=== PATIENT | male | born 1945 | race Caucasian/White ===

== ENCOUNTER → 2016-07-29 | Outpatient (CLI) | payer OTHER, BC ==
[~2016-07-29] VITALS: Ht 177.8 cm; Wt 86.2 kg
[~2016-07-29] MED LIST: ASPIR 8181 MG PO; FLOMAX0.4 MG PO; GLUCOPHAGE XR750 MG PO; LOSARTAN POTAS100 MG PO; PANTOPRAZOLE SO40 M1 PO; ROSUVASTATIN CA20 MG PO
--- NOTE | ~2016-07-29 | P ---
[facility] [place] [address] PROCEDURE REPORT Name: LIANAJAYSHREE ENRRIQUE Room #: REG [facility]#: [id number] Admission: 07/29/16 Attend Phys: Erik Mason MD Discharge: Date of : 45 Report #: [id number] THIS REPORT FOR: //name// CC: Erik Graves MD DATE OF SERVICE: 07/29/2016 BRIEF HISTORY: The patient is a 70-year-old male with a history of colon polyps for high risk screening colonoscopy. PREOPERATIVE DIAGNOSIS: High risk screening colonoscopy due to history of colon polyps. POSTOPERATIVE DIAGNOSES: 1. A 5-7 mm pedunculated polyp, distal rectum. 2. Mild sigmoid diverticulosis coli. 3. Small internal hemorrhoids. MEDICATIONS: Deep sedation with propofol per anesthesia. SPECIMEN: Polyp from rectum. ESTIMATED BLOOD LOSS: 3 mL. PROCEDURE: Colonoscopy to cecum and terminal ileum with snare polypectomy. FINDINGS: Prior to propofol sedation, procedure of colonoscopy discussed with the patient as well as potential risks and its complications. He indicates he understands and desires to proceed. DESCRIPTION OF PROCEDURE: With the patient in left lateral decubitus position, digital examination was completed, which revealed no abnormalities. Subsequently, the [employer] video colonoscope was introduced into the rectum, advanced under direct vision to the cecum. Done with minimal difficulty. The cecum was identified by the ileocecal valve and the appendiceal orifice. I was able to visualize the distal segment of terminal ileum, which was inspected and noted to be unremarkable. At that point, the scope was withdrawn and careful circumferential views were obtained. As we withdrew the scope, the prep was noted to be excellent. The mucosa was within normal limits, normal vascular pattern, normal light reflex. No abnormalities were noted until the sigmoid colon was reached at which point, a mild to moderate diverticular disease was noted in the sigmoid colon, but there was no endoscopic evidence of diverticulitis. Again, the mucosa was normal and the next abnormality was noted to be a pedunculated polyp in the very distal rectum. It was on a small short [facility] [address] [address] PROCEDURE REPORT Name: JAYSHREE GAINES Room #: REG [facility].#: [id number] Admission: 07/29/16 Attend Phys: Erik Mason MD Discharge: Date of : 45 Report #: [id number] stalk. The polyp was erythematous but not bleeding. This may be an inflammatory polyp. It also could be inflamed, hyperplastic or adenoma. It was removed by cold snare polypectomy. Upon retroflexion, small internal hemorrhoids were seen. Scope was withdrawn. The patient tolerated the procedure well. CONDITION OF THE PATIENT UPON DISCHARGE: Following procedure, the patient drowsy, aroused, conversant and will be discharged home when fully ambulatory. INSTRUCTIONS TO THE PATIENT AND FAMILY AT THE TIME OF DISCHARGE: We will follow up on the path of the polyp and make additional recommendations. If this is an adenomatous polyp, we will have him return in 5 years. If this is hyperplastic, then 10 years would be indicated. Last colonoscopy was 5 years ago. Withdrawal time from the cecum was 15 minutes. By: [id number] Erik Mason MD /nt
--- NOTE | ~2016-07-29 | S ---
[facility] [address] [place] [address] SURGICAL PATH RPT PROCEDURE Name: JAYSHREE GAINES Room #: REG [facility] MVarinderR.#: [id number] Admission: 07/29/16 Date of : 45 Discharge: Report #: [id number] Path Case #: [id number] PATHOLOGY REPORT DRAFT COLLECTION DATE: 07/29/2016 RECEIVED DATE: 07/29/2016 SPECIMEN(S) RECEIVED: A.Rectum-polyp
--- NOTE | ~2016-07-29 | EKG ---
[address] [address] ELECTROCARDIOGRAM REPORT Name: LIANAJAYSHREENANDO OSUNA Room #: REG CLI [facility]#: [id number] Admission: 07/29/16 Attend Phys: Erik Mason MD Discharge: Date of : 45 Report #: [id number] THIS REPORT FOR: //name// [facility] Test Date: 2016-07-29 Test Time: 07:31:46 Pat Name: JAYSHREE GAINES Department: Room: Gender: M [employer]: FERNANDO : 1945 Requested By: Erik Mason Order Number: [id number] MD: Vickey Belle Measurements Intervals [place] Rate: 81 P: 26 MI: 191 QRS: -18 QRSD: 82 T: 25 QT: 385 QTc: 447 Interpretive Statements Sinus rhythm Abnormal R-wave progression, early transition Inferior infarct, old Baseline wander in lead(s) III No previous ECG available for comparison Electronically Signed On 07-29-2016 20:46:57 CDT by Vickey Belle [email or web address] <ELECTRONICALLY SIGNED> By: Vickey Belle MD 07/29/162045 0 0 Vickey Belle MD /FRANCOIS
== END | disposition home or self-care (01) ==
LOC: GI 06:59
DX: Z12.11 Encounter for screening for malignant neoplasm of colon (principal); K62.1 Rectal polyp; K57.30 Diverticulosis of large intestine without perforation or abscess without bleeding; K64.8 Other hemorrhoids; I10 Essential (primary) hypertension; E78.00 Pure hypercholesterolemia, unspecified; K21.9 Gastro-esophageal reflux disease without esophagitis; E11.9 Type 2 diabetes mellitus without complications; Z86.010 Personal history of colon polyps; Z96.651 Presence of right artificial knee joint; Z87.442 Personal history of urinary calculi; Z90.49 Acquired absence of other specified parts of digestive tract; Z98.890 Other specified postprocedural states; Z98.41 Cataract extraction status, right eye; Z98.42 Cataract extraction status, left eye; Z87.891 Personal history of nicotine dependence
CPT/HCPCS: 62110; 62900

== ENCOUNTER → 2016-10-04 | Outpatient (CLI) | payer OTHER, BC ==
[2016-10-04 08:01] LABS: CREATININE 1.1 mg/dL (0.7-1.3)
== END ==
LOC: CAT 06:51
PROVIDERS: Surgery
DX: K42.9 Umbilical hernia without obstruction or gangrene (principal); K57.90 Diverticulosis of intestine, part unspecified, without perforation or abscess without bleeding

== ENCOUNTER → 2017-11-24 | Outpatient (CLI) | payer OTHER, BC | LOC: MRI 10:55 | DX: S43.491A Other sprain of right shoulder joint, initial encounter (principal); M19.011 Primary osteoarthritis, right shoulder; X58.XXXA Exposure to other specified factors, initial encounter; Y93.89 Activity, other specified; Y92.89 Other specified places as the place of occurrence of the external cause; Y99.8 Other external cause status ==